=== PATIENT | male | born 1975 | race American Indian/Alaskan Native ===

== ENCOUNTER 2019-02-18 19:07 | Emergency (ER) | payer OTHER ==
[2019-02-18 19:16] VITALS: BP 127/78
--- NOTE | 2019-02-18 20:01 | Emergency Department Report ---
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 Reports some pain with range of motion with no numbness or tingling. No fevers, chills or sweats.) Severity: mild Symptoms: Yes Pain with Movement, Yes Swelling, No Limited Range of Movement, No Numbness, No Weakness ED Review of Systems ROS: Stated complaint: TORE BICEP Other details as noted in HPI Comment: All other systems reviewed and negative ED Past Medical Hx - Past Medical History Hx Asthma: Yes Additional medical history: TBI, PTSD - Surgical History Past Surgical History?: No - Social History Smoking Status: Never Smoker Substance Use Type: Alcohol - Medications Home Medications: Home Medications Medication Instructions Recorded Confirmed Last Taken Type Ketorolac [Toradol] 10 mg PO Q6H PRN #14 tablet 02/18/19 Unknown Rx Upper Extremity Exam - Exam General: Vital signs noted. No distress. Alert and acting appropriately. Head and Torso: No HEENT Abnormality, No Neck Tenderness, No Chest/Lungs Abnormality, No Abdominal Tenderness, No Back Tenderness Shoulder Exam: Yes Normal Range of Motion in Shoulder, No Shoulder Tenderness, No Clavicle Tenderness, No Shoulder Deformity, No AC Joint Tenderness Arm Exam: Yes Arm/Humerus Tenderness (left bicep swelling in the area of the long head. There is full range of motion), No Arm Deformity Elbow: No Elbow Tenderness, No Normal Range of Motion in Elbow, No Elbow Deformity Forearm: No Forearm Tenderness, No Forearm Deformity, No Pain with Pronation, No Pain with Supination Wrist: Yes Normal ROM in Wrist, No Wrist Tenderness, No Wrist Deformity, No Snuffbox Tenderness, No Pain with Axial Thumb Compression Hand: Yes Normal ROM in Digit(s), No Hand Tenderness, No Hand Deformity, No Digit Tenderness, No Digit(s) Deformity, No Tendon Dysfunction CMS Exam: No Broken Skin, No Normal Distal Pulses, No Normal Capillary Refill, No Normal Distal Sensation ED Course Vital Signs 02/18/19 02/18/19 19:15 19:31 Temperature 98.3 F Pulse Rate 63 Respiratory 16 16 Rate Blood Pressure 127/78 [Left] O2 Sat by Pulse 97 Oximetry ED Medical Decision Making - Radiology Data Radiology results: report reviewed (no acute processes seen) - Medical Decision Making 43-year-old male with left bicep injury, likely strain versus [place] still has movement with supination and pronation of the bicep flexion and extension. There is no obvious complete tear, but may have a partial thickness tear or 80s. Strain to the bicep. Pain is minimal. Strength is 4/5. Scars the patient is to follow-up with orthopedics for definitive management Critical care attestation.: If time is entered above; I have spent that time in minutes in the direct care of this critically ill patient, excluding procedure time. ED Disposition Clinical Impression: Injury of biceps brachii muscle, Arm pain, left Disposition: DC-01 TO HOME OR SELFCARE Is pt being admited?: No Does the pt Need Aspirin: No Condition: Stable Instructions: Muscle Strain (ED) Prescriptions: Ketorolac [Toradol] 10 mg PO Q6H PRN #14 tablet PRN Reason: Pain Referrals: JUSTUS SCHMIDT MD [Staff Physician] - 3-5 Days
--- NOTE | 2019-02-18 20:11 | XRay Report ---
Left humerus-3 views INDICATION: injured bicep, upper arm pain. COMPARISON: None. IMPRESSION: No acute osseous or soft tissue abnormality. No significant DJD. Signer Name: Bhavesh To MD Signed: 02/18/2019 8:06 PM Workstation Name: [id number]
== END 2019-02-18 21:10 | disposition home or self-care (01) ==
LOC: ED 19:07
DX: S46.202A Unspecified injury of muscle, fascia and tendon of other parts of biceps, left arm, initial encounter (principal); J45.909 Unspecified asthma, uncomplicated; W18.30XA Fall on same level, unspecified, initial encounter; Y93.89 Activity, other specified; Y92.89 Other specified places as the place of occurrence of the external cause; Y99.8 Other external cause status